=== PATIENT | female | born 1980 | race Two or more races ===

== ENCOUNTER 2022-01-18 08:15 | Inpatient (IN) | payer OTHER ==
[~2022-01-18] VITALS: Ht 154.9 cm; Wt 71.7 kg
[2022-01-18] MEDS ORDERED: ZETIA10 MG PO (09:21)
[2022-01-18] MEDS ORDERED: ROSUVASTATIN CA20 MG PO (09:22)
[2022-01-18] MEDS ORDERED: MAGNESIUM400 MG PO (09:22)
[2022-01-18] MEDS ORDERED: MULTIPLE VITAM1 EAC2 PO (09:22)
[2022-01-18] MEDS ORDERED: D3 + K2 DOTS 11 EACH PO (09:22)
[2022-01-22] MEDS ORDERED: PENTOXIFYLLINE400 MG (08:15)
[2022-01-22] MEDS ORDERED: ST. JOSEPH ASPI81 M2 (08:15)
[2022-01-22] MEDS ORDERED: VITAMIN D31250 MCG (08:16)
[2022-01-24] MEDS ORDERED: IBUPROFEN800 MG PO (06:33)
[2022-01-24] MEDS ORDERED: GABAPENTIN300 MG PO (06:33)
[2022-01-24] MEDS ORDERED: TANDEM DUAL AC106 MG PO (06:34)
[2022-01-24] MEDS ORDERED: AUGMENTIN XR 11 EACH PO (06:35)
== END 2022-01-24 10:48 | disposition home or self-care (01) | DRG 743 ==
LOC: OB/GYN 01-22 05:39 → O/R 01-22 05:39 → SURG 01-22 08:15 → OB/GYN 01-22 11:46
PROVIDERS: ADMIT Obstetrics & Gynecology Gynecology; ATTEND Obstetrics & Gynecology Gynecology
PROC: 0UT70ZZ Resection of Bilateral Fallopian Tubes, Open Approach (ICD-10-PCS; 2022-01-22)
PROC: 0UT90ZZ Resection of Uterus, Open Approach (ICD-10-PCS; principal; 2022-01-22 10:30)
DX: D25.1 Intramural leiomyoma of uterus (principal); D25.0 Submucous leiomyoma of uterus; Z20.822 Contact with and (suspected) exposure to COVID-19; N72 Inflammatory disease of cervix uteri